=== PATIENT | male | born 1995 | race Caucasian/White ===

== ENCOUNTER 2019-12-31 18:59 | Emergency (ER) | payer SELFPAY ==
[2019-12-31] MEDS ORDERED: NORMAL SALINE 1000 ML 1,000 ML IV ONE (20:02)
[2019-12-31] MEDS ORDERED: ONDANSETRON HCL 8 MG TABLET PO ONE (20:02)
--- NOTE | 2019-12-31 20:05 | ER Document Report ---
ED Medical Screen (RME) - General Chief Complaint: Fever Stated Complaint: FEVER Time Seen by Provider: 12/31/19 19:55 Notes: Patient is a 24-year-old male who presents emergency department with a chief complaint of fever. Patient reports he has had symptoms for the past 5 days. Patient reports he was seen at the urgent care yesterday and diagnosed with influenza. Reports today his fever got as high as 104. He reports he has been taking TheraFlu and ibuprofen. Last dose of Motrin was about 1 and half hours ago. He denies vomiting does report intermittent diarrhea. He reports extreme nausea and every time he tends to eat or drink he feels like he is going to vomit. Patient reports has not eaten anything in the past 2 days. Patient reports continued productive cough with green sputum. TRAVEL OUTSIDE OF THE [place] IN LAST 30 DAYS: No - Related Data Allergies/Adverse Reactions: latex [Latex] Allergy (Severe, Verified 12/31/19 19:51) rash Past Medical History - Social History Frequency of alcohol use: None Drug Abuse: None - Past Medical History Cardiac Medical History: Denies: Hx Coronary Artery Disease, Hx Heart Attack, Hx Hypertension Pulmonary Medical History: Reports: Hx Asthma - childhood, Hx Pneumonia Denies: Hx Bronchitis, Hx COPD Neurological Medical History: Denies: Hx Cerebrovascular Accident, Hx Seizures Musculoskeltal Medical History: Denies Hx Arthritis Past Surgical History: Denies: Hx Pacemaker - Immunizations Immunizations up to date: Yes Hx Diphtheria, Pertussis, Tetanus Vaccination: Yes Physical Exam - Vital signs Vitals: Temp Pulse Resp BP Pulse Ox 99.8 F 103 H 18 115/67 97 12/31/19 19:42 12/31/19 19:42 12/31/19 19:42 12/31/19 19:42 12/31/19 19:42 Course - Re-evaluation Re-evalutation: 12/31/19 20:04 Patient afebrile in triage. Patient did receive ibuprofen 1-1/2 hours ago. Will initiate IV fluids, Zofran and obtain a chest x-ray to rule out pneumonia. Patient was instructed to alternate Tylenol and ibuprofen as needed for pain and body aches as well as fever. Patient and significant other instructed to take caution [place] use of acetaminophen in it. I have greeted and performed a rapid initial assessment of this patient. A comprehensive ED assessment and evaluation of the patient, analysis of test results and completion of the medical decision making process will be conducted by additional ED providers. - Vital Signs Vital signs: Temp Pulse Resp BP Pulse Ox 99.8 F 103 H 18 115/67 97 12/31/19 19:42 12/31/19 19:42 12/31/19 19:42 12/31/19 19:42 12/31/19 19:42
--- NOTE | 2019-12-31 20:35 | RADIOLOGY REPORT (SQ) ---
EXAM DESCRIPTION: [facility]: XR CHEST 2 VIEWS Views: 2 CLINICAL HISTORY: 24 years Male; productive cough, fever; COMPARISON: 07/23/2012 FINDINGS: Lungs: Lungs are clear, with no focal infiltrate, pneumothorax, or pleural effusion. Mediastinum: Mediastinum is within normal limits for this positioning. Bones: Bony structures are unremarkable. IMPRESSION: 1. No acute cardiothoracic abnormality.
[2019-12-31 22:11] VITALS: BP 107/62
== END 2020-01-01 00:36 | disposition left against medical advice (07) ==
LOC: ER 18:59
DX: R50.9 Fever, unspecified (principal); Z91.040 Latex allergy status
CPT/HCPCS: 99281; 71046; S0119